=== PATIENT | female | born 1985 | race Caucasian/White ===

== ENCOUNTER 2020-08-05 14:16 | Inpatient (IN) | payer BC ==
[~2020-08-05] VITALS: Ht 172.7 cm; Wt 113.4 kg
[2020-08-05] MEDS ORDERED: LEVOFLOXACIN 750MG PREMIX 150 ML IV STA (15:59)
[2020-08-05] MEDS ORDERED: ALBUTEROL (0.083%) 2.5MG/3ML NEB HHN STA (15:59)
[2020-08-05] MEDS ORDERED: IPRATROPIUM BROMIDE (0.02%) 0.5MG/2.5ML NEB HHN STA (15:59)
[2020-08-05] MEDS ORDERED: METHYLPREDNISOLONE SOD SUCC 125 MG/2 ML VIAL IV STA (15:59)
[2020-08-05] MEDS ORDERED: GUAIFENESIN 200MG/10ML SUGAR FREE UDC PO PRN (19:45)
[2020-08-05] MEDS ORDERED: PIPERACILLIN/TAZ 3.375G PREMIX 50 ML IV SCH (19:45)
[2020-08-05] MEDS ORDERED: ENOXAPARIN 40MG/0.4ML SYR SUBCUT SCH (19:45)
[2020-08-05] MEDS ORDERED: CLONIDINE 0.1MG TABLET PO PRN (19:45)
[2020-08-05] MEDS ORDERED: ONDANSETRON HCL 4MG/2ML INJ IV PRN (19:45)
[2020-08-05] MEDS ORDERED: ACETAMINOPHEN 325MG TABLET PO PRN (19:45)
[2020-08-05] MEDS ORDERED: MAGNESIUM/ALUMINUM HYDROXIDE/SIMETHICONE 30ML UDC PO PRN (19:45)
[2020-08-05] MEDS ORDERED: PIPERACILLIN/TAZ 3.375G PREMIX 50 ML IV NR (20:00)
[2020-08-05 22:04] LABS: BASOPHILS % 0.5 % (0.0-2.0); EOSINOPHILS % 1.4 % (0.0-5.0); HEMATOCRIT. 39.8 % (36.0-48.0); HEMOGLOBIN. 12.8 g/dL (12.0-16.0); LYMPHOCYTES % 37.7 % (20.0-50.0); MEAN CORPUSCULAR HEMOGLOBIN 24.7 pg (28.0-32.0); MEAN CORPUSCULAR VOLUME 76.8 fL (81.0-99.0); MEAN PLATELET VOLUME 8.6 fl (7.4-10.4); MONOCYTES % 9.5 % (2.0-8.0); NEUTROPHILS % 50.9 % (40.0-76.0); PLATELET 404 x1000/uL (130-400); RED BLOOD CELL COUNT 5.18 mill/uL (4.2-5.4); RED CELL DISTRIBUTION WIDTH 14.9 % (11.6-14.6)
[2020-08-05 22:11] LABS: CHLORIDE 106 mEq/L (98-107)
[2020-08-05 22:12] LABS: HCG SCREEN NEGATIVE
[2020-08-05] MEDS: ENOXAPARIN 30MG/0.3ML SYR SUBCUT SCH (23:00)
[2020-08-06] MEDS: ENOXAPARIN 30MG/0.3ML SYR SUBCUT SCH ×3 (00:23→21:00)
[2020-08-06] MEDS ORDERED: PIPERACILLIN/TAZOBACTAM 3.375 G in DEXT 5% WATER 100 ML IV SCH (03:15)
[2020-08-06] MEDS ORDERED: PIPERACILLIN/TAZ 3.375G PREMIX 50 ML IV NR (04:00)
[2020-08-06] MEDS: PIPERACILLIN/TAZOBACTAM 3.375 G in DEXT 5% WATER 100 ML IV SCH ×3 (09:30→21:53)
[2020-08-06] MEDS: DEXAMETHASONE 10 MG/ML VIAL IV SCH (12:25)
[2020-08-06] MEDS ORDERED: ALBUTEROL 6.7GM HFA INHALER ORI PRN (19:45)
[2020-08-06] MEDS ORDERED: DEXTROSE 50% WATER 50ML SYRINGE IV PRN (19:45)
[2020-08-06] MEDS: INSULIN LISPRO 100 UNITS/ML SUBCUT SCH (21:00)
[2020-08-06] MEDS: BLOOD SUGAR DIAGNOSTIC STRIP TEST SCH (21:03)
[2020-08-07] MEDS: PIPERACILLIN/TAZOBACTAM 3.375 G in DEXT 5% WATER 100 ML IV SCH ×3 (04:00→19:09)
[2020-08-07] MEDS: BLOOD SUGAR DIAGNOSTIC STRIP TEST SCH ×4 (07:12→21:32)
[2020-08-07] MEDS: INSULIN LISPRO 100 UNITS/ML SUBCUT SCH ×4 (07:29→21:43)
[2020-08-07] MEDS ORDERED: LIDOCAINE HCL/PF 1% 2ML VIAL ONE (07:50)
[2020-08-07 09:50] LABS: BG BASE EXCESS -0.6 mmol/L (-2.0-2.0); BG CARBOXYHEMOGLOBIN 0.3 % (0.5-1.5); BG DEOXYHEMOGLOBIN 1.5 % (0.0-5.0); BG METHEMOGLOBIN 0.1 % (0.0-1.5); BG OXYGEN SATURATION 98.5 % (92.0-98.5); BG OXYHEMOGLOBIN 98.1 % (94.0-97.0); BG PCO2 34.5 mmHg (35.0-45.0); BG PH 7.441 (7.350-7.450); BG PO2 134.1 mmHg (75.0-100.0); BG SAMPLE SITE RIGHT BRACHIAL; BG TOTAL HEMOGLOBIN 12.9 g/dL (12.0-18.0); BG VENT MODE MASK - NRB
[2020-08-07 11:00] VITALS: BP 113/75
[2020-08-07 11:44] VITALS: BP 122/78
[2020-08-07] MEDS: ENOXAPARIN 30MG/0.3ML SYR SUBCUT SCH ×2 (12:56→21:36)
[2020-08-07] MEDS: DEXAMETHASONE 10 MG/ML VIAL IV SCH (13:30)
[2020-08-07 16:00] VITALS: BP 126/71
[2020-08-07] MEDS ORDERED: EMPA25TA PO (19:30)
[2020-08-07] MEDS ORDERED: ASPI-1497 PO (19:30)
[2020-08-07] MEDS ORDERED: METF-816 PO (19:30)
[2020-08-07 20:00] VITALS: BP 102/80
[2020-08-08] VITALS: BP 118/78
[2020-08-08] MEDS: PIPERACILLIN/TAZOBACTAM 3.375 G in DEXT 5% WATER 100 ML IV SCH ×4 (01:12→18:00)
[2020-08-08 04:00] VITALS: BP 125/83
[2020-08-08] MEDS: BLOOD SUGAR DIAGNOSTIC STRIP TEST SCH ×4 (06:36→21:00)
[2020-08-08] MEDS: INSULIN LISPRO 100 UNITS/ML SUBCUT SCH ×4 (06:36→22:24)
[2020-08-08 08:00] VITALS: BP 117/69
[2020-08-08] MEDS: ENOXAPARIN 30MG/0.3ML SYR SUBCUT SCH ×2 (08:22→22:11)
[2020-08-08] MEDS: DEXAMETHASONE 10 MG/ML VIAL IV SCH (08:36)
[2020-08-08 12:00] VITALS: BP 112/77
[2020-08-08] MEDS ORDERED: INSULIN REGULAR (HUMULIN R) 300UNITS/3ML VIAL SUBCUT NR (14:00)
[2020-08-08 16:00] VITALS: BP 108/61
[2020-08-08 20:00] VITALS: BP 108/70
[2020-08-08] MEDS: INSULIN GLARGINE UD 100 UNITS/ML SYR SUBCUT SCH (22:24)
[2020-08-09] VITALS: BP 110/65
[2020-08-09] MEDS: PIPERACILLIN/TAZOBACTAM 3.375 G in DEXT 5% WATER 100 ML IV SCH ×4 (01:06→18:29)
[2020-08-09 04:00] VITALS: BP 118/75
[2020-08-09] MEDS: INSULIN LISPRO 100 UNITS/ML SUBCUT SCH ×4 (06:23→22:15)
[2020-08-09] MEDS: BLOOD SUGAR DIAGNOSTIC STRIP TEST SCH ×4 (06:24→21:00)
[2020-08-09 08:00] VITALS: BP 108/66
[2020-08-09] MEDS: ENOXAPARIN 30MG/0.3ML SYR SUBCUT SCH ×2 (11:09→22:15)
[2020-08-09] MEDS: DEXAMETHASONE 10 MG/ML VIAL IV SCH (11:09)
[2020-08-09 12:00] VITALS: BP 119/60
[2020-08-09 16:00] VITALS: BP 112/64
[2020-08-09 20:00] VITALS: BP 113/76
[2020-08-09] MEDS: INSULIN GLARGINE UD 100 UNITS/ML SYR SUBCUT SCH (22:16)
[2020-08-10] VITALS: BP 113/65
[2020-08-10] MEDS: PIPERACILLIN/TAZOBACTAM 3.375 G in DEXT 5% WATER 100 ML IV SCH ×2 (01:04→06:07)
[2020-08-10 04:00] VITALS: BP 109/77
[2020-08-10] MEDS: INSULIN LISPRO 100 UNITS/ML SUBCUT SCH (06:07)
[2020-08-10] MEDS: BLOOD SUGAR DIAGNOSTIC STRIP TEST SCH (06:08)
[2020-08-10 08:49] VITALS: BP 103/67
[2020-08-10] MEDS: DEXAMETHASONE 10 MG/ML VIAL IV SCH (09:14)
[2020-08-10] MEDS: ENOXAPARIN 30MG/0.3ML SYR SUBCUT SCH (09:14)
[2020-08-10 10:18] VITALS: BP 105/61
[2020-08-10 10:35] VITALS: BP 105/61
[2020-08-10 11:11] VITALS: BP 106/63
== END 2020-08-10 11:50 | disposition home or self-care (01) | DRG 871 ==
LOC: ER 14:16 → MICUSO 08-06 21:55 → 8WST 08-07 09:03
PROVIDERS: ADMIT Hospitalist; ATTEND Hospitalist
DX: A41.89 Other specified sepsis (principal); J96.01 Acute respiratory failure with hypoxia; U07.1 COVID-19; J12.89 Other viral pneumonia; E11.9 Type 2 diabetes mellitus without complications; J45.909 Unspecified asthma, uncomplicated; E66.9 Obesity, unspecified; Z79.1 Long term (current) use of non-steroidal anti-inflammatories (NSAID); Z79.899 Other long term (current) drug therapy; Z79.4 Long term (current) use of insulin; Z68.38 Body mass index [BMI] 38.0-38.9, adult
CPT/HCPCS: 36415; 36600; 71045; 80053; 82375; 82805; 82962; 84703; 85025; 87635; 99291; J1100; J1650; J1815; J2543; J3490; J7040; J7060